=== PATIENT | female | born 1940 | race Caucasian/White ===

== ENCOUNTER 2021-06-21 10:55 | Inpatient (IN) ==
[2021-06-21 11:54] LABS: Basophils % 0.1 % (0.0-0.8); Eosinophils # 0.1 10*3/uL (0.0-0.87); Eosinophils % 0.7 % (0.00-10.9); Hematocrit 43.6 VOL% (35.7-47.0); Hemoglobin 14.5 GM/DL (12.0-16.0); Immature Granulocytes % 0.4 %; Immature Granulocytes Absolute 0.05 #; Lymphocytes # 1.5 10*3/uL (1.4-4.0); Lymphocytes % 12.7 % (21.3-54.2); Mean Corpuscular HGB Conc 33.3 GM/DL (32-36); Mean Corpuscular Volume 90.5 FL (87-102); Mean Platelet Volume 10.9 FL (9.6-12.0); Monocytes % 7.1 % (1.7-12.7); Platelet Count 256 T/CUMM (130-400); Red Blood Count 4.82 MC/CUMM (3.8-5.5); Red Cell Distribution Width 12.1 % (9.3-17.3); White Blood Count 11.8 T/CUMM (4-12)
[2021-06-21 12:41] LABS: Albumin 3.5 G/DL (3.4-5.0); Bilirubin,Total 0.5 MG/DL (0.20-1.00); Osmolality,Calculated 324.9 MOS/KG (273-304); Total Protein 7.7 G/DL (6.4-8.2)
[2021-06-21 12:46] LABS: Potassium 6.2 MMOL/L (3.5-5.1)
[2021-06-21 12:49] LABS: Hyaline Casts,Urine 3 /LPF (0-3); Mucus,Urine Occasional /LPF (Occasional); Squamous Epithelial Cell,Urine Occasional /HPF (0-10)
[2021-06-21 12:50] LABS: Bilirubin,Urine Negative (Negative); Blood, Urine Negative (Negative); Glucose,Urine (UA) Negative (Negative); Ketones,Urine Negative (Negative); Nitrite,Urine Negative (Negative); Protein,Urine Negative (Negative); Urine Appearance Clear (Clear); Urine Color Light Yellow (Yellow); Urine Urobilinogen < 2.0 eU/dL (<2.0)
[2021-06-21 12:54] LABS: Barbiturates Screen,Urine Negative (Negative); Benzodiazepines Screen,Urine Negative (Negative); Cannabinoid Screen,Urine Negative (Negative); Opiate Screen,Urine Negative (Negative); Phencyclidine Screen,Urine Negative (Negative)
[2021-06-21] MEDS ORDERED: DEXTROSE 50% 25 GM/50 ML VIAL IV STA (13:00)
[2021-06-21] MEDS ORDERED: INSULIN REGULAR 100 UNIT/ML IV STA (13:00)
[2021-06-21] MEDS ORDERED: ALBUTEROL 2.5 MG/3 ML NEB RESP TX STA (13:01)
[2021-06-21] MEDS ORDERED: SODIUM CHLORIDE 0.9% 1,000 ML IV STA (13:04)
[2021-06-21] MEDS ORDERED: DEXTROSE 50% 25 GM/50 ML SYRINGE IV ONE (13:49)
[2021-06-21] MEDS ORDERED: ACETAMINOPHEN 325 MG TABLET PO PRN (14:08)
[2021-06-21] MEDS ORDERED: DEXTROSE 5% NACL 0.9% 1,000 ML IV SCH (14:30)
[2021-06-21] MEDS ORDERED: SODIUM ZIRCONIUM CYCLOSILICATE 10 GM PACK PO SCH (14:30)
[2021-06-21] MEDS: SODIUM BICARB INJ 50 MEQ in DEXTROSE 5% NACL 0.9% 1,000 ML IV SCH (15:35)
[2021-06-21] MEDS: ENOXAPARIN 30 MG/0.3 ML SYRINGE SUBCUT SCH (16:15)
[2021-06-21 19:44] LABS: Calcium 8.3 MG/DL (8.5-10.1); Potassium 4.9 MMOL/L (3.5-5.1)
[2021-06-21] MEDS: DOCUSATE SODIUM 100 MG CAPSULE PO SCH (20:53)
[2021-06-21] MEDS: SODIUM ZIRCONIUM CYCLOSILICATE 10 GM PACK PO SCH (20:54)
[2021-06-22] MEDS: SODIUM BICARB INJ 50 MEQ in DEXTROSE 5% NACL 0.9% 1,000 ML IV SCH ×3 (00:25→18:37)
[2021-06-22 04:58] LABS: Calcium 7.8 MG/DL (8.5-10.1); Potassium 4.5 MMOL/L (3.5-5.1)
[2021-06-22] MEDS ORDERED: SODIUM ZIRCONIUM CYCLOSILICATE 10 GM PACK PO SCH (09:00)
[2021-06-22] MEDS: PANTOPRAZOLE 40 MG TABLET PO SCH (09:22)
[2021-06-22] MEDS: DOCUSATE SODIUM 100 MG CAPSULE PO SCH ×2 (09:22→20:24)
[2021-06-22] MEDS: SODIUM ZIRCONIUM CYCLOSILICATE 10 GM PACK PO SCH (09:23)
[2021-06-22] MEDS: ONDANSETRON 4 MG/2 ML VIAL IV PRN ×2 (16:48→21:13)
[2021-06-22] MEDS: ENOXAPARIN 30 MG/0.3 ML SYRINGE SUBCUT SCH (16:51)
[2021-06-23] MEDS: ONDANSETRON 4 MG/2 ML VIAL IV PRN ×3 (03:11→20:10)
[2021-06-23] MEDS: SODIUM BICARB INJ 50 MEQ in DEXTROSE 5% NACL 0.9% 1,000 ML IV SCH (04:00)
[2021-06-23 05:17] LABS: Basophils % 0.5 % (0.0-0.8); Eosinophils # 0.2 10*3/uL (0.0-0.87); Eosinophils % 3.3 % (0.00-10.9); Hematocrit 38.7 VOL% (35.7-47.0); Immature Granulocytes % 0.6 %; Immature Granulocytes Absolute 0.04 #; Lymphocytes # 1.1 10*3/uL (1.4-4.0); Lymphocytes % 16.7 % (21.3-54.2); Mean Corpuscular Volume 96.3 FL (87-102); Mean Platelet Volume 10.8 FL (9.6-12.0); Monocytes % 12.7 % (1.7-12.7); Neutrophils % 66.2 % (38.7-73.9); Platelet Count 175 T/CUMM (130-400); Red Blood Count 4.02 MC/CUMM (3.8-5.5); Red Cell Distribution Width 12.6 % (9.3-17.3); White Blood Count 6.4 T/CUMM (4-12)
[2021-06-23 05:34] LABS: Calcium 8.3 MG/DL (8.5-10.1); Osmolality,Calculated 318.7 MOS/KG (273-304); Potassium 4.5 MMOL/L (3.5-5.1)
[2021-06-23] MEDS ORDERED: DEXTROSE 5% NACL 0.45% 1,000 ML IV SCH (08:30)
[2021-06-23] MEDS: PANTOPRAZOLE 40 MG TABLET PO SCH (08:41)
[2021-06-23] MEDS: DOCUSATE SODIUM 100 MG CAPSULE PO SCH ×2 (08:41→20:11)
[2021-06-23] MEDS: SIMVASTATIN 10 MG TABLET PO SCH (09:54)
[2021-06-23] MEDS: METOPROLOL TARTRATE 50 MG TABLET PO SCH ×2 (09:55→20:11)
[2021-06-23] MEDS: FLECAINIDE 100 MG TABLET PO SCH ×2 (09:55→20:11)
[2021-06-23] MEDS: APIXABAN 5 MG TABLET PO SCH ×2 (09:55→20:10)
[2021-06-23] MEDS: amLODIPine 2.5 MG TABLET PO SCH (09:56)
[2021-06-23] MEDS: DEXTROSE 5% 1,000 ML IV SCH (09:59)
[2021-06-23] MEDS ORDERED: HydrOXYzine PAMOATE 25 MG CAPSULE PO PRN (18:39)
[2021-06-24] MEDS: DEXTROSE 5% 1,000 ML IV SCH (00:39)
[2021-06-24] MEDS: amLODIPine 2.5 MG TABLET PO SCH (08:51)
[2021-06-24] MEDS: DOCUSATE SODIUM 100 MG CAPSULE PO SCH (08:51)
[2021-06-24] MEDS: PANTOPRAZOLE 40 MG TABLET PO SCH (08:51)
[2021-06-24] MEDS: FLECAINIDE 100 MG TABLET PO SCH (08:52)
[2021-06-24] MEDS: APIXABAN 5 MG TABLET PO SCH (08:52)
[2021-06-24] MEDS: SIMVASTATIN 10 MG TABLET PO SCH (08:52)
[2021-06-24] MEDS: METOPROLOL TARTRATE 50 MG TABLET PO SCH (08:52)
[2021-06-24 09:48] LABS: Calcium 8.7 MG/DL (8.5-10.1); Osmolality,Calculated 288.8 MOS/KG (273-304); Potassium 4.2 MMOL/L (3.5-5.1)
[2021-06-24 14:15] VITALS: BP 127/55
== END 2021-06-24 15:01 | DRG 683 ==
LOC: N.ED 10:55 → N.EDINP 14:08 → N.TELES 15:25
PROVIDERS: ADMIT Family Medicine; ATTEND Family Medicine